=== PATIENT | male | born 1945 | race Hispanic/Latino ===

== ENCOUNTER 2019-09-11 06:49 | Day surgery (SDC) | payer MEDICARE ==
[2019-09-11] MEDS ORDERED: ASPIRIN EC 325 MG TAB PO NR (07:08)
[2019-09-11 07:41] LABS: Basophils % (Auto) 0.6 % (0.0-1.8); Eosinophils # (Auto) 0.2 K/mm3 (0.0-0.4); Eosinophils % (Auto) 3.5 % (0.0-4.3); Hematocrit 46.5 % (35.5-45.6); Hemoglobin 15.7 gm/dl (11.8-15.2); Lymphocytes # (Auto) 1.3 K/mm3 (1.2-5.4); Lymphocytes % (Auto) 20.2 % (13.4-35.0); Mean Corpuscular HGB Conc 34 % (32-34); Mean Corpuscular Volume 96 fl (84-94); Monocytes % (Auto) 14.3 % (0.0-7.3); Platelet Count 121 K/mm3 (140-440); Red Blood Count 4.87 M/mm3 (3.65-5.03); Red Cell Distribution Width 13.7 % (13.2-15.2)
[2019-09-11] MEDS: SODIUM CHLORIDE 0.9% 500 ML 500 ML IV SCH ×2 (07:45→09:05)
[2019-09-11 07:51] LABS: INR 1.15 (0.87-1.13)
[2019-09-11 07:57] LABS: BUN/Creatinine Ratio 13; Blood Urea Nitrogen 14 mg/dL (9-20); Calcium 9.4 mg/dL (8.4-10.2); Hemolysis Index 4
[2019-09-11] MEDS ORDERED: HEPARIN/NS 5000 UNIT/500ML 1,000 ML IR ONE (08:33)
[2019-09-11] MEDS ORDERED: LIDOCAINE (2%) 20 MG/1 ML VIAL 20 ML MDV INFILTRATI ONE (08:33)
[2019-09-11] MEDS ORDERED: MIDAZOLAM 2 MG/2 ML INJ ONE (08:36)
[2019-09-11] MEDS ORDERED: fentaNYL 100 MCG/2 ML INJ ONE (08:36)
[2019-09-11] MEDS: NITROGLYCERIN SYRINGE 3 ML ONE ×2 (09:14→09:15)
[2019-09-11] MEDS: VERAPAMIL 5 MG/2 ML INJ ONE ×2 (09:15→09:17)
[2019-09-11] MEDS: HEPARIN 10,000 UNITS/10 ML VIAL ONE ×2 (09:15→09:17)
--- NOTE | 2019-09-11 10:09 | Short Stay Summary ---
Short Stay Documentation Date of service: 09/11/19 - History H&P: obtained from office - Allergies and Medications Current Medications: Allergies No Known Allergies Allergy (Unverified 09/11/19 06:49) Home Medications Medication Instructions Recorded Confirmed Last Taken Type Apixaban [Eliquis] 5 mg PO BID 09/10/19 09/11/19 09/09/19 09:00 History Cholecalciferol Vit D3 [Vitamin D3 1,000 unit PO QDAY 09/10/19 09/11/19 09/11/19 05:30 History 1,000 UNIT TAB] Digoxin [Lanoxin] 0.125 mg PO DAILY 09/10/19 09/10/19 09/10/19 History Metoprolol [Lopressor TAB] 50 mg PO BID 09/10/19 09/11/19 09/11/19 05:30 History [place]-3 Fatty Acids/Fish Oil [Eql 1 each PO DAILY 09/10/19 09/11/19 09/11/19 05:30 History Fish Oil 1,000 mg Softgel] Simvastatin 20 mg PO DAILY 09/10/19 09/10/19 09/10/19 History Tolterodine (Nf) [Detrol LA] 4 mg PO QHS 09/10/19 09/11/19 09/10/19 History Ubidecarenone [Co Q-10] 10 mg PO DAILY 09/10/19 09/10/19 09/10/19 History Active Medications Sodium Chloride (Nacl 0.9% 500 Ml) 500 mls @ 50 mls/hr IV DIRECT DEE Stop: 09/11/19 17:59 Last Admin: 09/11/19 09:05 Dose: 50 mls/hr Documented by: - Brief post op/procedure progress note Date of procedure: 09/11/19 Pre-op diagnosis: sob and cp Post-op diagnosis: same Procedure: see report Anesthesia: local Estimated blood loss: none Pathology: none - Disposition Condition at discharge: Good Disposition: DC-01 TO HOME OR SELFCARE - Discharge Diagnoses (1) Atrial fibrillation with controlled ventricular rate Status: Chronic (2) Hypertension Status: Chronic Qualifiers: Hypertension type: essential hypertension Qualified Code(s): I10 - Essential (primary) hypertension (3) Hyperlipemia, mixed Status: Chronic (4) SOBOE (shortness of breath on exertion) Status: Acute (5) Chest pain Status: Acute Qualifiers: Ischemic chest pain type: stable angina pectoris (6) Aortic stenosis, mild Status: Chronic Short Stay Discharge Plan Diet: low fat, low cholesterol, low salt Wound: keep clean and dry Follow up with: TORI ALTAMIRANO COLLAR POINTER [Primary Care Provider] - 7 Days
--- NOTE | 2019-09-11 10:10 | Cardiac Catherization Report ---
LEFT HEART CATHETERIZATION CLINICAL INFORMATION: A 74-year-old gentleman with history of hypertension, hyperlipidemia, atrial fibrillation, on oral anticoagulation for the last several weeks, has been having exertional class 2 anginal symptoms despite medical therapy, is here for a left heart cath. Left heart cath performed with moderate sedation. Total sedation time was 20 minutes, started 9:10 a.m., finished at 9:30 a.m. DESCRIPTION OF PROCEDURE: Procedure was done via the right radial artery, sterile technique, local anesthesia, 6-Syriac radial sheath inserted. Left system engaged JL4 catheter, left main is large and patent, bifurcates into large LAD that is patent with mild irregularities. Diagonal 1 is a large caliber vessel, patent with mild luminal irregularities. Circumflex is a large caliber vessel, patent with mild luminal irregularities. OM1 and OM2 are medium caliber vessels, patent. RCA is a large dominant vessel, patent. PDA and PLV are medium caliber vessels, patent. LV gram done in JEREMY and LUNDBERG view shows normal LV function. LVEDP 18 mmHg, LV is 138 mmHg. Aortic is 108/71 mmHg. There is a 20 mm tkml-ro-hqna gradient suggestive of [id number] aortic stenosis. 5-Syriac catheters all taken over guidewire. A 6-Syriac radial sheath was discontinued. Radial band applied. No hematoma, no bleeding. SUMMARY: 1. Left main patent; LAD large patent, mild luminal irregularities; diagonal 1 large patent, mild luminal irregularities; circumflex is a large patent, mild irregularities; OM1 and OM2 medium caliber vessel, patent, mild luminal irregularities; RCA large, dominant, patent; normal LV function with [id number]-[id number] stenosis with a 20 mm fgml-qk-hnip gradient. 2. Continue risk factor modification. Noncardiac chest pain. Discussed this in detail with the patient and the patient's family. [facility]# [id number] GAY/MARLA
[2019-09-11 12:48] VITALS: BP 108/52
== END 2019-09-11 13:15 | disposition home or self-care (01) ==
LOC: CATHLABREC 06:49
PROVIDERS: ATTEND Internal Medicine
DX: I25.118 Atherosclerotic heart disease of native coronary artery with other forms of angina pectoris (principal); I10 Essential (primary) hypertension; E78.2 Mixed hyperlipidemia; I35.0 Nonrheumatic aortic (valve) stenosis; I48.19 Other persistent atrial fibrillation; Z79.899 Other long term (current) drug therapy; Z98.49 Cataract extraction status, unspecified eye; Z85.46 Personal history of malignant neoplasm of prostate; Z87.442 Personal history of urinary calculi; Z98.890 Other specified postprocedural states
CPT/HCPCS: 36415; 80048; 85025; 85610; 85730; 93005; 93010; 93458; 99156; C1894; J1644; J2250; J3010; J7040; Q9967

== ENCOUNTER 2021-12-27 06:34 | Day surgery (SDC) | payer MEDICARE ==
[2021-12-27] MEDS ORDERED: ASPIRIN EC 325 MG TAB PO SCH (07:30)
[2021-12-27 07:40] LABS: Basophils # (Auto) 0.1 K/mm3 (0.0-0.1); Basophils % (Auto) 0.8 % (0.0-1.8); Eosinophils # (Auto) 0.3 K/mm3 (0.0-0.4); Eosinophils % (Auto) 4.1 % (0.0-4.3); Hematocrit 46.3 % (35.5-45.6); Hemoglobin 15.2 gm/dl (11.8-15.2); Lymphocytes # (Auto) 1.2 K/mm3 (1.2-5.4); Lymphocytes % (Auto) 16.2 % (13.4-35.0); Mean Corpuscular HGB Conc 33 % (32-34); Mean Corpuscular Volume 95 fl (84-94); Monocytes # (Auto) 0.9 K/mm3 (0.0-0.8); Monocytes % (Auto) 12.8 % (0.0-7.3); Platelet Count 134 K/mm3 (140-440); Red Cell Distribution Width 14.5 % (13.2-15.2)
[2021-12-27 07:46] LABS: INR 0.97 (0.87-1.13)
[2021-12-27 07:47] LABS: Partial Thromboplastin Time 31.2 Sec. (24.2-36.6)
[2021-12-27 07:48] LABS: Calcium 9.1 mg/dL (8.4-10.2)
[2021-12-27] MEDS ORDERED: HEPARIN 10,000 UNITS/10 ML VIAL ONE (08:12)
[2021-12-27] MEDS ORDERED: NITROGLYCERIN SYRINGE 0 ML ONE (08:17)
[2021-12-27] MEDS: SODIUM CHLORIDE 0.9% 500 ML 500 ML IV SCH ×3 (08:23→09:15)
[2021-12-27] MEDS: MIDAZOLAM 2 MG/2 ML INJ ONE ×2 (08:31→09:13)
[2021-12-27] MEDS: fentaNYL 100 MCG/2 ML INJ ONE ×2 (08:32→09:14)
[2021-12-27] MEDS: LIDOCAINE (2%) 20 MG/1 ML VIAL 20 ML MDV INFILTRATI ONE ×2 (08:32→09:17)
[2021-12-27] MEDS: HEPARIN/NS 5000 UNIT/500ML 1,000 ML IR ONE ×2 (08:33→09:17)
[2021-12-27] MEDS ORDERED: HYDROcodone/ACETAMINOPHEN 5-325 MG TAB PO PRN (11:30)
[2021-12-27] MEDS ORDERED: traMADol 50 MG TAB PO PRN (11:30)
[2021-12-27 15:05] VITALS: BP 136/84
== END 2021-12-27 15:41 | disposition home or self-care (01) ==
LOC: CATHLABREC 06:34
PROVIDERS: ATTEND Internal Medicine
DX: R07.89 Other chest pain (principal); I48.91 Unspecified atrial fibrillation; I10 Essential (primary) hypertension; I05.0 Rheumatic mitral stenosis; E78.2 Mixed hyperlipidemia; I35.0 Nonrheumatic aortic (valve) stenosis; K21.9 Gastro-esophageal reflux disease without esophagitis; M19.90 Unspecified osteoarthritis, unspecified site; Z79.899 Other long term (current) drug therapy; Z87.891 Personal history of nicotine dependence; Z98.49 Cataract extraction status, unspecified eye; Z87.01 Personal history of pneumonia (recurrent); Z85.46 Personal history of malignant neoplasm of prostate; Z87.442 Personal history of urinary calculi; Z98.890 Other specified postprocedural states; Z82.49 Family history of ischemic heart disease and other diseases of the circulatory system
CPT/HCPCS: 36415; 80048; 85025; 85610; 85730; 93005; 93010; 93460; 99156; 99157; C1769; C1894; J1644; J2250; J3010; J3490; J7040; J1815; Q9967